=== PATIENT | female | born 1970 | race Caucasian/White ===

== ENCOUNTER 2017-03-10 00:37 | Emergency (ER) | payer OTHER ==
[2017-03-10 00:55] VITALS: BP 119/74; BMI 24.9
[2017-03-10] MEDS ORDERED: NS 1000 ML 1,000 ML IV ONE (01:15)
[2017-03-10] MEDS ORDERED: REGLAN INJ 10 MG VIAL IVP STA (01:16)
[2017-03-10] MEDS ORDERED: ZOFRAN INJ 4 MG VIAL IVP ONE (01:17)
[2017-03-10] MEDS ORDERED: TORADOL 30 MG VIAL IVP STA (01:17)
[2017-03-10] MEDS ORDERED: REGLAN INJ 10 MG VIAL ONE (01:20)
[2017-03-10] MEDS ORDERED: ZOFRAN INJ 4 MG VIAL ONE (01:20)
[2017-03-10] MEDS ORDERED: NS 1000 ML 1,000 ML ONE (01:20)
[2017-03-10] MEDS ORDERED: TORADOL 30 MG VIAL ONE (01:20)
--- NOTE | 2017-03-10 01:24 | DR.GENAD ---
HPI - PCP Primary Care Physician: RICHARD - Complaint/Symptoms Chief Complaint Doctors Comments: Patient complains of nausea, vomiting, diarrhea for the past two days with her not being able to keep anything down. States she is having watery stools with lower abdominal pain, chills with persistent nausea. Patient state she has been taking Zofran but it has not been helping. States she is the only one sick at home presently. States she is a patient of Dr. Hutchison and has had a partial hysterectomy. States sandra stomach has been hurting in the LLQ and lower abdomen. She denies dysuria or hematuria. She denies history of kidney stones. Chief Complaint:: EXCESSIVE VOMITING AND DIARRHEA SINCE SATURDAY, FEVER, CHILLS ; SEVERE WEAKNESS; ABDOMINAL PAIN THROUGHOUT; HAS BEEN NPO FOR 4 DAYS EXCEPT ICE CHIPS; WEIGHT LOSS OF 6-7 IN THE LAST 3 DAYS. Self Treatment fo Chief Complaint: ZOFRAN AT HOME - Nurses notes reviewed Nurses Notes Review: Yes - Source History Provided: Patient - Mode of Arrival Mode of Arrival: Ambulatory - Timing Onset of Chief Complaint: 03/06/17 Came on: Gradually - Duration Duration: Constant How lon Duration: Days - Location Location: lower abdominal and LLQ and RLQ pain - Severity Severity: Moderate, Severe - Modifying Factors Worsens:: nothing Improves:: nothing PMH - PMH Past Medical History: Yes Past Medical History: GERD Past Medical History Comment: IBS, PRECANCEROUS POLYP WITH PRIOR COLONSCOPY Past Surgical History: Yes Surgical History: Hysterectomy, Tonsillectomy Past Surgical History Comment: D&C, EGD, COLONOSCOPY IN SEPTEMBER OR OCTOBER OF THIS YEAR - Family History History of Family Medical Conditions: Yes Family Medical History: Cancer, Heart Failure, Hypertension Family Medical History Comment: MOTHER-COLON/LIVER CANCER - Social History Alcohol Use: None Lives With: Spouse Lives Where: Home - infectious screening In the last 2 months have you had wt loss of >10#?: NO Have you had fever, night sweats or hemotysis?: No Have you traveled outside the country in the last 6 months?: No Isolation: Standard ROS - Review of Systems Constitutional: No Symptoms Reported, Chills, Fever, Weakness, Fatigue, Loss of Appetite. negative: See HPI, Diaphoresis, Malaise, Irritable, Other Eyes: No Symptoms Reported ENTM: No Symptoms Reported. negative: See HPI, Ear Pain, Ear Discharge, Pulling on Ears, Hearing Loss, Nose Pain, Nose Discharge, Epistaxis, Nose Congestion, Mouth Pain, Mouth Swelling, Loose Teeth, Drooling, Throat Pain, Throat Swelling, Ear Foreign Body Respiratoy: No Symptoms Reported. negative: See HPI, Productive Cough, Non- Productive Cough, Moist Cough, Dry Cough, Hacking Cough, Barking Cough, Brassy Cough, Orthopnea, Short of Breath, Stridor, Wheezing, Hemoptysis, Other Cardiovascular: No Symptoms Reported. negative: See HPI, Chest Pain, Edema, Palpitations, Syncope, Cyanosis, Skin Mottling, Other Gastrointestinal/Abdominal: Abdominal Pain, Diarrhea, Nausea, Vomiting. negative: No Symptoms Reported, See HPI, Constipation, Food Intolerance, Other Genitourinary: No Symptoms Reported. negative: See HPI, Discharge, Dysuria, Frequency, Hematuria, Pain, Bleeding, Other Neurological: No Symptoms Reported, Weakness. negative: See HPI, Anxiety, Depressed, Emotional Problems, Headache, Numbness, Paresthesia, Pre-existing Deficit, Seizure, Tingling, Tremors, Dizziness, Problems Walking, Speech Problem , Other Musculoskeletal: No Symptoms Reported Integumentary: No Symptoms Reported. negative: See HPI, Change in Color, Change in Hair/Nails, Dryness, Lesions, Lumps, Rash, Itching, Wound, Bruises, Juandice, Other Hematologic/Lymphatic: No Symptoms Reported. negative: See HPI, Anemia, Blood Clots, Easy Bleeding, Easy Bruising, Swollen Glands, Lymphadenopathy, Other Endocrine: No Symptoms Reported, Unexplained Weight Loss, Decreased Appetite. negative: See HPI, Excessive Sweating, Flushing, Intolerance to Cold, Intolerance to Heat, Increased Hunger, Increased Thirst, Increased Urine, Unexplained Weight Gain, Failure to Thrive, Other Psychiatric: No Symptoms Reported. negative: See HPI, Anxiety, Depression, Hallucinations, Excessive crying, Suicidal, Other PE - Vital Signs Vitals: Temperature 98.8 F Pulse Rate 125 Respiratory Rate 20 Blood Pressure 119/74 O2 Sat by Pulse Oximetry 96 - General Limitations: No Limitations General Appearance: Alert, In Distress (moderate) - Head Head Exam: Normal Inspection, Atraumatic, Normocephalic - Eyes Eye exam: Normal Appearance, PERRL, EOMI. negative: Scleral Icterus, Conjunctival Injection, Nystagmus, Miosis, Mydrasis, Periorbital Swelling, Periorbital Tenderness, Other - ENT ENT Exam: Normal Exam, Normal Oropharynx, Normal External Ear Exam, Mucous Membranes Moist, TM's Normal Bilaterally External Ear Exam: Normal External Inspection TM/Canal Exam: Bilateral Normal Nose Exam: Normal Nose Exam. negative: Sinus Tenderness, Nasal Deviation, Crepitus, Septal Hematoma, Laceration, Abrasion, Other Mouth Exam: Normal Inspection. negative: Drooling, Trismus, Lip Swelling, Tongue Elevation, Tongue Swelling, Laceration, Other Throat Exam: Normal Inspection. negative: Tonsillar Erythema, Tonsillomegaly, Tonsillar Exudate, R Peritonsillar Mass, L Peritonsillar Mass, Muffled Voice, Other - Neck Neck Exam: Normal Inspection, Full ROM, Trachea Midline. negative: Tenderness, Meningismus, Lymphadenopathy, Thyromegaly, Other - Chest Chest Inspection: Normal Inspection, Symmetric Chest Wall Rise. negative: Tenderness, Rash, Abscess, Other - Respiratory Respiratory Exam: Normal Lung Sounds Bilat. negative: Accessory Muscle Use, Chest Wall Tenderness, Prolonged Expiratory Phase, Respiratory Distress, Stridor , Other Respiratory Exam: Bilateral Clear to Auscultation - Cardiovascular Cardiovascular Exam: Regular Rate, Normal Rhythm, Normal Heart Sounds. negative : Bradycardia, Tachycardia, Irregular Rhythm, Systolic Murmur, Diastolic Murmur , Rubs, Gallop, Clicks, JVD, +S1, +S2, +S3, +S4, Other - Abdominal Exam Abdominal Exam: Normal Inspection, Normal Bowel Sounds, Soft, Guarding, Rebound. negative: Distention, Tenderness, Rigidity, Dimnished Bowel Sounds, Hyperactive Bowel Sounds, Hypoactive Bowel Sounds, Organomegaly, Trauma, Incision, Ascites, Mass, Bruit, Pulsatile Mass, Hernia, Other Abdominal Tenderness: RLQ, LLQ, Suprapubic, Moderate - Extremities Extremities Exam: Normal Inspection, Full ROM, Normal Capillary Refill. negative: Tenderness, Edema, Joint Swelling, Calf Tenderness, Other - Back Back Exam: Normal Inspection, Full ROM. negative: Tenderness, (R) CVA Tenderness, (L) CVA Tenderness, Muscle Spasm, Paraspinal Tenderness, Vertebral Tenderness, Rashes, (R) Sciatic Notch Tenderness, (L) Sciatic Notch Tendern, (R ) Straight Leg Raise, (L) Straight Leg Raise, Other - Neurologic Neurological Exam: Alert, Oriented X3, CN II-XII Intact, Reflexes Normal. negative: Normal Gait (gait not tested) - Psychiatric Psychiatric Exam: Normal Affect, Normal Mood. negative: Depressed, Agitated, Anxious, Flat Affect, Manic, Homicidal Ideation, Suicidal Ideation, Other - Skin Skin Exam: Warm, Dry, Intact, Normal Color. negative: Rash, Cyanosis, Diaphoresis, Erythema, Pallor, Mottled, Other Course - Reevaluation 1st: Improved - Education/Counseling Education/Counseling: Patient, Family Educated On: Treatment, Diagnosis, Prognosis, Needs for Follow Up ROR - Labs Reviewed Laboratory Results Reviewed?: Yes (All labs and x-ray results reviewed and discussed with patient) Result Diagrams: 03/10/17 01:30 03/10/17 01:30 Laboratory: WBC 7.3 X10^3/uL (3.6-10.0) 03/10/17 01:30 RBC 4.80 X10^6/uL (3.5-5.4) 03/10/17 01:30 Hgb 14.7 g/dL (12.0-16.0) 03/10/17 01:30 Hct 41.7 % (36.0-47.0) 03/10/17 01:30 MCV 86.9 fL (80.0-100.0) 03/10/17 01:30 MCH 30.5 pg (27.0-34.0) 03/10/17 01:30 MCHC 35.2 g/dL (33.0-35.0) H 03/10/17 01:30 RDW 13.4 % (11.6-16.5) 03/10/17 01:30 Plt Count 289 X10^3/uL (150.0-450.0) 03/10/17 01:30 MPV 8.5 fL (7.4-11.0) 03/10/17 01:30 Neut % 81.7 % (42.0-75.0) H 03/10/17 01:30 Lymph % 7.6 % (21.0-51.0) L 03/10/17 01:30 [place] % 10.2 % (0.0-13.0) 03/10/17 01:30 Eos % 0.1 % (0.9-2.9) L 03/10/17 01:30 Baso % 0.4 % (0.2-1.0) 03/10/17 01:30 Neut # 5.9 x10^3/uL (2.2-4.8) H 03/10/17 01:30 Lymph # 0.6 X10^3/uL (1.3-2.9) L 03/10/17 01:30 [place] # 0.7 x10^3/uL (0.3-0.8) 03/10/17 01:30 Eos # 0.0 x10^3/uL (0.0-0.2) 03/10/17 01:30 Baso # 0.0 X10^3/uL (0.0-0.1) 03/10/17 01:30 Absolute Nucleated RBC 0.1 /100WBC 03/10/17 01:30 Sodium 135 mmol/L (136-145) L 03/10/17 01:30 Corrected Sodium TNP 03/10/17 01:30 Potassium 3.0 mmol/L (3.5-5.1) L* 03/10/17 01:30 Chloride 99 mmol/L (98-107) 03/10/17 01:30 Carbon Dioxide 24.7 mmol/L (21-32) 03/10/17 01:30 BUN 12 mg/dL (7-18) 03/10/17 01:30 Creatinine 1.05 mg/dL (0.55-1.02) H 03/10/17 01:30 Est GFR (MDRD) Af Amer > 60 (>60) 03/10/17 01:30 Est GFR (MDRD) Non-Af 60 (>60) 03/10/17 01:30 Glucose 99 mg/dL (65-99) 03/10/17 01:30 Calcium 8.2 mg/dL (8.5-10.1) L 03/10/17 01:30 Corrected Calcium 9.0 mg/dL (8.5-10.1) 03/10/17 01:30 Total Bilirubin 0.30 mg/dL (0.2-1.0) 03/10/17 01:30 AST 17 Units/L (15-37) 03/10/17 01:30 ALT 15 Units/L (12-78) 03/10/17 01:30 Alkaline Phosphatase 66 Units/L (46-116) 03/10/17 01:30 Total Protein 7.9 g/dL (6.4-8.2) 03/10/17 01:30 Albumin 3.0 g/dL (3.4-5.0) L 03/10/17 01:30 Globulin 4.9 g/dL (2.5-4.5) H 03/10/17 01:30 Albumin/Globulin Ratio 0.6 Ratio (1.1-2.1) L 03/10/17 01:30 Amylase 75 Units/L (25-115) 03/10/17 01:30 Lipase 258 Units/L (73-393) 03/10/17 01:30 Specimen Type Clean catch urine 03/10/17 01:24 Urine Color Yellow (YELLOW) 03/10/17 01:24 Urine Appearance Clear (CLEAR) 03/10/17 01:24 Urine pH 6.0 (5.0 - 8.0) 03/10/17 01:24 Ur Specific [place] 1.020 (1.000-1.030) 03/10/17 01:24 Urine Protein 2+ (NEGATIVE) 03/10/17 01:24 Urine Glucose (UA) Negative (NEGATIVE) 03/10/17 01:24 Urine Ketones 3+ (NEGATIVE) 03/10/17 01:24 Urine Occult Blood 5+ (NEGATIVE) 03/10/17 01:24 Urine Nitrite Negative (NEGATIVE) 03/10/17 01:24 Urine Bilirubin Negative (NEGATIVE) 03/10/17 01:24 Urine Urobilinogen Normal (NORMAL) 03/10/17 01:24 Ur Leukocyte Esterase Negative (NEGATIVE) 03/10/17 01:24 Urine RBC 0-3 /HPF (NEGATIVE) 03/10/17 01:24 Urine WBC 6-8 /HPF (NEGATIVE) 03/10/17 01:24 Ur Squamous Epith Cells Few /HPF (NEGATIVE) 03/10/17 01:24 Amorphous Sediment Trace /HPF (NEGATIVE) 03/10/17 01:24 Urine Bacteria 1+ /HPF (NEGATIVE) 03/10/17 01:24 Urine Mucus Few /HPF (NEGATIVE) 03/10/17 01:24 Ur Culture Indicated? Yes/culture set up 03/10/17 01:24 - XRAY XRAY Interpreted by: Radiologist (CT abdomena nd pelvis: Normal CT examination of the abdomena nd pelvis.) - Diagnosis Discharge Problem: Gastroenteritis, acute, Hypokalemia, Dehydration Urinary tract infection Qualifiers: Encounter type: initial encounter - Discharge Plan Disposition: 01 HOME, SELF-CARE Condition: Stable Prescriptions: Levofloxacin [LEVAQUIN TAB 500 MG *] 500 mg PO DAILY #10 tab Promethazine HCl [PHENERGAN TAB 25 MG *] 25 mg PO Q6H PRN #28 tab PRN Reason: Nausea/Vomiting - Follow ups/Referrals Follow ups/Referrals: ROSALIA HUTCHISON [Primary Care Provider] - 3 days - Instructions Instructions: Urinary Tract Infection, Dehydration, Adult, [id number], Viral Gastroenteritis, Adult, Dehydration, Adult, Hypokalemia, Potassium Content of Foods, Urinary Tract Infection, [id number]
[2017-03-10 01:43] LABS: BILIRUBIN,URINE NEGATIVE (NEGATIVE); BLOOD/HEMOGLOBIN,URINE 5+ (NEGATIVE); GLUCOSE, URINE NEGATIVE (NEGATIVE); KETONES,URINE 3+ (NEGATIVE); LEUKOCYTE ESTERASE ,URINE NEGATIVE (NEGATIVE); NITRITES,URINE NEGATIVE (NEGATIVE); PROTEIN,URINE 2+ (NEGATIVE); UROBILINOGEN,URINE NORMAL (NORMAL)
[2017-03-10 01:47] LABS: BLOOD UREA NITROGEN 12 mg/dL (7-18); CALCIUM 8.2 mg/dL (8.5-10.1); CARBON DIOXIDE 24.7 mmol/L (21-32); CHLORIDE 99 mmol/L (98-107); CREATININE 1.05 mg/dL (0.55-1.02); GLUCOSE 99 mg/dL (65-99); SODIUM 135 mmol/L (136-145); eGFR BLACK RACES > 60 (>60); eGFR NON BLACK RACES 60 (>60)
[2017-03-10 01:50] LABS: AMORPHOUS SEDIMENT,UR TRACE /HPF (NEGATIVE); APPEARANCE,URINE CLEAR (CLEAR); BACTERIA,URINE 1+ /HPF (NEGATIVE); COLOR,URINE YELLOW (YELLOW); MUCUS,URINE FEW /HPF (NEGATIVE); RBC,URINE 0-3 /HPF (NEGATIVE); SQUAMOUS EPITHELIAL CELL,UR FEW /HPF (NEGATIVE)
[2017-03-10 01:51] LABS: ALANINE AMINOTRANSFERASE 15 Units/L (12-78); ALKALINE PHOSPHATASE 66 Units/L (46-116); AMYLASE 75 Units/L (25-115); ASPARTATE AMINO TRANSFERASE 17 Units/L (15-37); BASOPHILS % (AUTO) 0.4 % (0.2-1.0); EOSINOPHILS % (AUTO) 0.1 % (0.9-2.9); HEMATOCRIT 41.7 % (36.0-47.0); HEMOGLOBIN 14.7 g/dL (12.0-16.0); LIPASE 258 Units/L (73-393); LYMPHOCYTES # (AUTO) 0.6 X10^3/uL (1.3-2.9); LYMPHOCYTES % (AUTO) 7.6 % (21.0-51.0); MEAN CORPUSCULAR HEMOGLOBIN 30.5 pg (27.0-34.0); MEAN CORPUSCULAR HGB CONC 35.2 g/dL (33.0-35.0); MEAN CORPUSCULAR VOLUME 86.9 fL (80.0-100.0); MEAN PLATELET VOLUME 8.5 fL (7.4-11.0); MONOCYTES # (AUTO) 0.7 x10^3/uL (0.3-0.8); MONOCYTES % (AUTO) 10.2 % (0.0-13.0); NEUTROPHILS # (AUTO) 5.9 x10^3/uL (2.2-4.8); NEUTROPHILS % (AUTO) 81.7 % (42.0-75.0); PLATELET COUNT 289 X10^3/uL (150.0-450.0); RED CELL DISTRIBUTION WIDTH 13.4 % (11.6-16.5); TOTAL PROTEIN 7.9 g/dL (6.4-8.2); WHITE BLOOD COUNT 7.3 X10^3/uL (3.6-10.0)
--- NOTE | 2017-03-10 02:02 | CT ---
EXAM: CT ABDOMEN AND PELVIS WITHOUT CONTRAST INDICATION: Suprapubic pain COMPARISION: No priors available for comparison TECHNIQUE: Axial CT examination of the abdomen and pelvis was performed without intravenous contrast. Coronal a nd sagittal reconstructions were created using the axial data. FINDINGS: The lung bases are clear. The liver, spleen, pancreas, adrenal glands, kidneys, and gallbladder are normal. There is no evidence of biliary ductal dilatation. The aorta and inferior vena cava are norm al in caliber. The bowel loops are nonobstructed. No abnormal mass, lymphadenopathy, or fluid collection. Urinary bladder is normal. The appendix is normal. The uterus has been removed. The regional skeleton is intact. IMPRESSION: Normal CT examination of the abdomen and pelvis. Reported By:
[2017-03-10] MEDS ORDERED: K-LYTE EFFERVESCENT ONE (02:11)
[2017-03-10] MEDS ORDERED: LEVAQUIN TAB 500 MG PO STA (02:22)
[2017-03-10] MEDS ORDERED: LEVAQUIN TAB 500 MG ONE (02:46)
[2017-03-10] MEDS ORDERED: K-LYTE EFFERVESCENT PO SCH (09:00)
== END 2017-03-10 03:02 | disposition home or self-care (01) ==
LOC: ER 00:37
DX: E86.0 Dehydration (principal); K52.89 Other specified noninfective gastroenteritis and colitis; N39.0 Urinary tract infection, site not specified; E87.6 Hypokalemia; R11.10 Vomiting, unspecified
CPT/HCPCS: 36415; 74176; 80053; 81001; 82150; 83690; 85025; 87086; 96365; 96374; 96375; 99283; A4216; A4222; J1885; J2405; J2765